=== PATIENT | male | born 1945 | race Caucasian/White ===

== ENCOUNTER → 2023-07-27 12:57 | Outpatient (REF) | payer MEDICARE, OTHER, SELFPAY | LOC: RAD 12:57 | PROVIDERS: ATTENDING PHYSICIAN Nuclear Medicine Nuclear Cardiology | DX: I50.22 Chronic systolic (congestive) heart failure (principal); Z95.2 Presence of prosthetic heart valve; Z95.1 Presence of aortocoronary bypass graft | CPT/HCPCS: 71046 ==

== ENCOUNTER → 2023-10-14 13:24 | Outpatient (REF) | payer MEDICARE, OTHER, SELFPAY | LOC: RCS 13:24 | PROVIDERS: ATTENDING PHYSICIAN Nuclear Medicine Nuclear Cardiology; FAMILY PHYSICIAN Family Medicine | DX: Z95.2 Presence of prosthetic heart valve (principal); Z95.1 Presence of aortocoronary bypass graft | CPT/HCPCS: 93306 ==

== ENCOUNTER 2024-07-01 19:23 | Emergency (ER) | payer MEDICARE, OTHER, SELFPAY ==
[2024-07-01 19:26] VITALS: BP 166/107
[2024-07-01 21:10] VITALS: BMI 28.4
--- NOTE | 2024-07-01 21:11 | EDRN ---
Pt says he is here because 'there's a toy lodged in my rectum.' Pt says it is 'a fairly good sized dildo.' Dildo is non battery operated and has been in pt's rectum since 1529 today. Pt has been urinating since, no BM. Pt says he emptied his
bowels thoroughly before he inserted the dildo. No abd pain, n/v.
--- NOTE | 2024-07-01 21:17 | EDRN ---
Pt adds he took metamucil around 1600 in the hope it would stimulate a bowel movement to push out the dildo.
[2024-07-01 21:20] VITALS: BP 138/84
--- NOTE | 2024-07-01 22:37 | ED.GENMED ---
History of Present Illness
General
Chief Complaint: Bowel Problem
Source: patient and spouse
Exam Limitations: none
Time Seen by Provider: 07/01/24 22:03
Nursing documentation reviewed up to this point in time: agreed with
History of Present Illness
History of Present Illness:
This is an 78-year-old gentleman who has history of paroxysmal atrial fibrillation chronically maintained on Eliquis, low-dose aspirin. History of hyperlipidemia and history of bioprosthetic aortic valve replacement.
He presents tonight with complaints of rectal foreign body. Pleasuring himself with a dildo, has used this device in the past but device tonight became lodged up in his rectum.
He took a dose of Metamucil this evening hoping he could poop the object out.
His attempted digital rectal exam but could not feel the object with her finger.
He denies abdominal pain, denies rectal pain. He has had no rectal bleeding. No nausea nor vomiting.
No history of similar episodes in the past.
Past History
Past History
ED Past Medical History: Arrthythmia (Atrial fibrillation), HTN, Hypercholesterolemia, Valvular disease (Bioprosthetic aortic valve replacement), Other (Cervical Discitis) and Other (Discitis); Negative Asthma
ED Past Surgical History: Appendectomy, Cardiac (Bioprosthetic aortic valve replacement), Tonsilectomy and Other (Polyp removal)
Social History
Tobacco: Non-smoker
Alcohol: None
Personal:
Living: with family
Employment: Retired
Family History
Family History: Other (Noncontributory)
Phy Exam
Physical Exam
Physical Exam:
GENERAL: 78-year-old gentleman appears his stated age, bright and alert, pleasant, appears in no acute distress. Accompanied by his .
EYE: anicteric
NECK: Supple, nontender, no meningismus, no significant adenopathy.
ENT: oral mucosa is moist. No rhinorrhea.
CARDIAC: Regular rate and rhythm. no murmur.
LUNGS: Clear breath sounds bilaterally, no acute respiratory distress, no wheezes/rales/rhonchi
ABDOMEN: Soft, nondistended, without focal tenderness, no r/g, no cvat. normoactive BS.
NEUROLOGICAL: Alert and oriented x3, no focal neuro deficits. Gait is weston and steady.
SKIN: Warm and dry, normal color, skin intact. No rash.
MUSCULOSKELETAL: No C/C/E. peripheral pulses are full and equal b/l. No palpable tenderness.
PSYCH: Normal and appropriate interaction.
Course
Orders/Labs/Results
Orders:
Orders
07/01/24 21:27
Abdomen Xray - 1 View [CR Abdomen - 1 View] Urgent
Comment:
Reason For Exam: pt has dildo stuck in rectum
07/01/24 23:00
Flush (0.9% Sodium Chloride) [Flush (Nss)] See Dose Instructions IV PER PROTOCOL
07/01/24 23:08
Electrocardiogram (*1) Urgent
Reason for Study: PreOp
EKG- Treatment ONCE
07/01/24 23:19
Basic Metabolic Panel Urgent
Complete Blood Count/With Diff Urgent
Abnormal Lab Results
07/01/24
23:19
MCV 96.4 H fL
(80.0-94.0)
MCH 31.7 H pg
(27.0-31.0)
MCHC 32.8 L g/dL
(33.0-37.0)
Absolute Neuts (auto) 7.2 H 10^3/uL
(1.4-6.5)
Absolute Monos (auto) 1.0 H 10^3/uL
(0.1-0.6)
Neutrophils % 75.9 H %
(42.2-75.2)
Lymphocytes % 12.9 L %
(20.5-51.1)
Monocytes % 10.0 H %
(1.7-9.3)
Glucose 100 H mg/dl
(70-99)
07/01/24 23:19
07/01/24 23:19
Vital Signs
Initial and Last Documented VS:
Initial Vital Signs
Temp Pulse Resp BP Pulse Ox
98.2 F 112 20 166/107 99
07/01/24 19:26 07/01/24 19:26 07/01/24 19:26 07/01/24 19:26 07/01/24 19:26
Last Documented Vital Signs
Temp Pulse Resp BP Pulse Ox
97.7 F 72 16 117/75 99
07/01/24 23:35 07/01/24 23:35 07/01/24 21:20 07/01/24 23:35 07/01/24 23:35
MDM/Problems Addressed
Differential Diagnosis Includes:
Patient presents with rectal foreign body.
Abdominal x-ray shows large oblong/eggplant shaped foreign body lodged within the rectosigmoid region. This eggplant shaped foreign body is pedro-shaped with larger pedro portions pointed superiorly.
No evidence of bowel obstruction on 1 view x-ray and reassuring the patient denies abdominal pain and abdomen is soft without appreciable tenderness.
Object is located in the distal sigmoid region, above the rectum thus not amenable to removal in the ED.
Will contact colorectal surgery.
Chronic conditions affecting care: Arrhythmia (History of A-fib chronically maintained on Eliquis/low-dose aspirin.)
*Radiology
Radiology exam reviewed: preliminary read by ED provider (Abdominal x-ray shows lower sigmoid foreign body.)
*Pulse Oximetry
Patient hypoxic: no
*Critical Care Note
Total Time (30-74mins, 75-104mins- exclusive of procedures): Not Applicable
Update Note
Update Note:
22:45
Case discussed with colorectal surgery, Dr. Hannon. Will admit to his service. Keep n.p.o. we will plan for OR in the morning.
Will obtain routine preop EKG and laboratory studies.
23:45
Patient has successfully defecated foreign body.
Continues to feel well, no abdominal pain, no rectal bleeding.
Will discharge to home.
ED Attending Note
-
Portions of this chart may have been created with voice recognition software.� Occasional wrong word or��sound alike� substitutions may have occurred due to the inherent limitations of voice recognition software.
Discharge Plan
Departure
Patient Disposition: Home (Routine Discharge)
Date of Disposition: 07/01/24
Time of Disposition: 22:37
Presentation/result/management discussed w/ accepting MD/DO: gen surgery
Patient with high blood pressure during this ER visit?: No
Condition: Fair
Discharge Problem:
Foreign body of rectum
Instructions: Removing objects stuck in the rectum
Prescriptions:
No Action
atorvastatin 80 MG tablet
80 mg PO DAILY
Eliquis 5 mg tablet
5 mg PO BID 30 Days Qty: 60 0RF
aspirin 81 mg Tablet,Delayed Release (Dr/Ec)
81 mg PO DAILY
Metamucil 3.4 gram/5.4 gram Powder
1 tsp PO NOON
Referrals:
Osito Hannon MD [Active] - As needed
Interventions
Interventions:
*Risk Screen - Suicide Last Done: 07/01/24 21:11
*General Assessment Last Done: 07/01/24 19:26
*Neglect/Abuse Screening Last Done: 07/01/24 21:11
ED- Fall Risk Assessment Last Done: 07/01/24 23:24
*ED COVID-19 Vaccine History Last Done: 07/01/24 21:11
GR-Edycym-Awexxunxbt Assessment Last Done: 07/01/24 21:25
Discharge Date and Time
Print Language: CZECH
[2024-07-01 23:32] LABS: % Basophils 0.4 % (0-2); % Eosinophils 0.4 % (0-6); % Immature Granulocytes 0.4 % (0-0.5); % Lymphocytes 12.9 % (20.5-51.1); % Neutrophils 75.9 % (42.2-75.2); Absolute Lymphocytes 1.2 10^3/uL (1.2-3.4); Absolute Neutrophils 7.2 10^3/uL (1.4-6.5); Hemoglobin 15.1 g/dL (13.0-18.0); Mean Corp Hgb Conc. 32.8 g/dL (33.0-37.0); Mean Corpuscular Hgb 31.7 pg (27.0-31.0); Mean Corpuscular Volume 96.4 fL (80.0-94.0); Mean Platelet Volume 9.1 fL (7.4-10.4); Nucleated Red Blood Cells % 0 % (-); Platelet Count 151 10^3/uL (130-400); Red Blood Cell Count 4.77 10^6/uL (4.70-6.10); Red Cell Dist. Width 12.6 % (11.5-14.5); White Blood Cell Count 9.5 10^3/uL (4.8-10.8)
[2024-07-01 23:35] VITALS: BP 117/75
[2024-07-01 23:45] LABS: Blood Urea Nitrogen 17 mg/dl (9-20); Calcium 9.2 mg/dl (8.4-10.2); Carbon Dioxide 28 mmol/L (22-30); Chloride 102 mmol/L (98-107); Estimated Creatinine Clearance 48 ml/min; Glucose 100 mg/dl (70-99); Potassium 4.3 mmol/L (3.5-5.1); Sodium 137 mmol/L (135-145); eGFR 55.53
== END 2024-07-02 00:21 | disposition home or self-care (01) ==
LOC: EMR 19:23
PROVIDERS: EMERGENCY PHYSICIAN Emergency Medicine; FAMILY PHYSICIAN Family Medicine
DX: T18.5XXA Foreign body in anus and rectum, initial encounter (principal); W44.8XXA Other foreign body entering into or through a natural orifice, initial encounter; I48.0 Paroxysmal atrial fibrillation; E78.00 Pure hypercholesterolemia, unspecified; I11.9 Hypertensive heart disease without heart failure; I38 Endocarditis, valve unspecified; Z79.01 Long term (current) use of anticoagulants; Z90.49 Acquired absence of other specified parts of digestive tract; Z95.3 Presence of xenogenic heart valve
CPT/HCPCS: 99283; 74018; 80048; 85025; 93005

== ENCOUNTER → 2024-10-14 12:54 | Outpatient (REF) | payer MEDICARE, OTHER, SELFPAY | LOC: RCS 12:54 | PROVIDERS: ATTENDING PHYSICIAN Nuclear Medicine Nuclear Cardiology; FAMILY PHYSICIAN Family Medicine | DX: I48.0 Paroxysmal atrial fibrillation (principal) | CPT/HCPCS: 93306 ==